=== PATIENT | female | born 1980 | race Caucasian/White ===

== ENCOUNTER → 2021-12-30 | Outpatient (CLI) | payer BC | LOC: MC.RAD 09:26 | DX: Z12.31 Encounter for screening mammogram for malignant neoplasm of breast (principal) ==

== ENCOUNTER 2022-04-28 05:50 | Day surgery (SDC) | payer BC ==
[2022-04-28] VITALS (10 sets, daily range): BP systolic 92–109; BP diastolic 44–74; PULSE 51–71; TEMP 96.8–97.5
[~2022-04-28] VITALS: Wt 101.5 kg
[2022-04-28] MEDS ORDERED: PRILOTC PO (06:37)
[2022-04-28] MEDS ORDERED: VITAMINC1000TA PO (06:38)
[2022-04-28] MEDS ORDERED: VALTREX 50500 MG/TAB PO (06:38)
[2022-04-28] MEDS ORDERED: CALCIUM 600MG+D1 TAB PO (06:39)
[2022-04-28] MEDS ORDERED: MULTI VITAMINS1 TAB PO (06:40)
[2022-04-28] MEDS ORDERED: VITAMIN B PO (06:40)
--- NOTE | 2022-04-28 08:27 | NUR ---
PATIENT RETURNED TO B[facility] ON CART. PATIENT ALERT AND ORIENTED, DENIES PAIN AND NAUSEA. HANDOFF COMPLETED IN ROOM WITH OR NURSE (ZONIA JARVIS) AND ANESTHESIA (CAMILA Mattson CRNA). SEE CHART FOR VITAL SIGNS. BREATHING REGULAR AND UNLABORED. RIGHT FOOT COBAN DRESSING CLEAN, DRY AND INTACT. POST OP SHOE ON RIGHT FOOT. PATIENT HAD JIGAR CRACKERS AND WATER, BOTH TOLERATED WELL. CALL LIGHT IN REACH.
--- NOTE | 2022-04-28 09:30 | NUR ---
PATIENT DENIES PAIN AND NAUSEA, AMBULATED WITH TO RESTROOM AND VOIDED WITHOUT DIFFICULTY.
--- NOTE | 2022-04-28 10:45 | NUR ---
PATIENT DENIES PAIN AND NAUSEA, TOLERATING FOOD AND DRINK. DISCHARGE TEACHING COMPLETED WITH PRINTED EDUCATION SENT HOME WITH PATIENT. PATIENT AND [facility] VERBALIZED UNDERSTANDING OF PROCEDURE. IV REMOVED. PATIENT DISCHARGED HOME WITH [facility].
== END 2022-04-28 11:12 | disposition home or self-care (01) ==
LOC: SDCO 05:50
DX: M20.11 Hallux valgus (acquired), right foot (principal); M21.611 Bunion of right foot; K21.9 Gastro-esophageal reflux disease without esophagitis; Z87.891 Personal history of nicotine dependence
CPT/HCPCS: C1713; J0690; J1100; J1885; J2405; J2704; J3010; J7120

== ENCOUNTER → 2023-02-13 | Outpatient (CLI) | payer BC ==
[~2023-02-13] MED LIST: CALCIUM 600MG+D1 TAB PO; MULTI VITAMINS1 TAB PO; PRILOTC PO; VALTREX 50500 MG/TAB PO; VITAMIN B PO; VITAMINC1000TA PO
== END ==
LOC: MC.RAD 13:54
DX: R92.8 Other abnormal and inconclusive findings on diagnostic imaging of breast (principal)